=== PATIENT | male | born 1950 | race Caucasian/White ===

== ENCOUNTER 2022-10-28 15:20 | Inpatient (IN) ==
--- NOTE | 2022-10-28 15:42 | Emergency Department Note ---
HPI General Chief complaint: Abdominal Pain Stated complaint: ab pain Time Seen by Provider: 10/28/22 15:39 Source: patient Mode of arrival: ambulatory Limitations: no limitations History of Present Illness HPI Narrative: Narrative: Patient is a 72-year-old male with a complex medical history who presents to the emergency department due to concern for small bowel obstruction. Patient states that he has had weeks of abdominal discomfort and has had diarrhea over that period of time as well. He states that his primary care provider ordered a CT scan due to concern for possible diverticulitis. He states that he had a CT scan performed, and that they found concern for partial small bowel obstruction, so the radiology department called him and told him to come to the emergency department. At this time he endorses continued diarrhea and some abdominal discomfort in the left lower quadrant of the abdomen, but denies any other symptoms. Related Data Home Medications Medication Instructions Recorded Confirmed nitroglycerin 0.4 mg sublingual 0.4 mg sublingual Q5M PRN Angina 09/09/21 10/28/22 tablet isosorbide mononitrate 30 mg 60 mg PO QDAY 05/12/22 10/28/22 tablet,extended release 24 hr ferrous sulfate 325 mg (65 mg 325 mg PO BID 05/23/22 10/28/22 iron) tablet Previous Rx's Medication Instructions Recorded albuterol sulfate 90 mcg/actuation 2 puff inhalation Q6H PRN 09/09/21 aerosol inhaler shortness of breath or wheezing #8.5 grams pantoprazole 40 mg tablet,delayed 40 mg PO QDAY #90 tabs 05/04/22 release nicotine 21 mg/24 hr daily 1 patch transdermal Q24H #28 ea 05/10/22 transdermal patch atorvastatin 20 mg tablet 20 mg PO QDAY #90 tabs 07/19/22 metoprolol tartrate 25 mg tablet 25 mg PO BID #180 tabs 08/18/22 rivaroxaban 20 mg tablet (Xarelto) 20 mg PO QDAY #90 tabs 08/18/22 lisinopril 40 mg tablet 40 mg PO QDAY #90 tabs 10/24/22 Allergies Allergy/AdvReac Type Severity Reaction Status Date / Time doxycycline Allergy Unknown Unknown Verified 10/28/22 15:28 hydrocodone AdvReac Mild stomach Verified 10/28/22 22:03 upset Varenicline [From Chantix] AdvReac Mild Other Verified 10/28/22 15:28 Review of Systems ROS ROS Narrative: Narrative: Constitutional: Denies fever or weakness Eyes: Denies eye pain or vision change ENT ED: Denies throat pain or rhinorrhea Cardiovascular: Denies chest pain, dyspnea on exertion, orthopnea or edema Respiratory: Denies shortness of breath or cough Gastrointestinal: Reports abdominal pain and diarrhea; Denies nausea, vomiting, constipation, hematochezia or melena Genitourinary: Denies dysuria or frequency Musculoskeletal: Denies back pain or myalgia Integumentary: Denies rash or lesions Neurological: Denies headache, weakness, numbness, confusion, abnormal gait or dizziness Endocrine: Denies fatigue or polyuria PFSH Narrative Patient History Narrative: Narrative: Medical/Surgical/Family History All Active Problems (Updated 10/28/22 @ 20:29 by Dipti Gonzales MD) History of alcohol consumption (Acute) Cholelithiasis with chronic cholecystitis (Acute) Chronic diarrhea (Acute) Abdominal pain (Acute) Diarrhea (Acute) Epistaxis (Acute) Medicare annual wellness visit, initial (Acute) Chronic sinusitis (Chronic) Left ankle pain (Acute) Arterial atherosclerosis (Acute) Lung nodule (Acute) HLD (hyperlipidemia) (Chronic) GERD (gastroesophageal reflux disease) (Chronic) Abnormal stress test (Chronic) ETOH abuse (Chronic) HTN (hypertension) (Chronic) Shortness of breath (Chronic) Elevated d-dimer (Chronic) Coronary artery disease (Chronic) Chest pain (Chronic) Osteoarthritis, knee (Acute) Alcoholism /alcohol abuse (Acute) Unexplained weight loss (Acute) Abnormal CT scan, gallbladder (Acute) Hyponatremia (Acute) Hypochloremia (Acute) Macrocytosis without anemia (Acute) Cigarette nicotine dependence (Acute) Emphysema lung (Chronic) Chronic atrial fibrillation (Acute) Anticoagulant not prescribed at discharge (Acute) Coronary artery calcification of [place] artery (Acute) Snoring (Chronic) Angina at rest (Acute) Alcohol use (Chronic) Essential hypertension (Chronic) AC (acromioclavicular) arthritis (Chronic) Right shoulder pain (Chronic) Cervical radiculopathy (Acute) Cervical pain (neck) (Acute) Left knee pain (Acute) Colon polyps (Chronic) Fatigue (Chronic) Paroxysmal atrial fibrillation (Chronic) Tobacco use (Chronic) Osteoarthritis (Chronic) Encounter for Health Maintenance Examination in Adult (Chronic) Rosacea (Chronic) Medical History Abdominal pain Abnormal stress test Atrial fibrillation 11/2009-Recurrent atrial fibrillation with initial episode in 11/2009; cardiolite and echo normal and mitral valve prolapse respectively in 11/2009. Possible short episode in 04/2011. Current episode 01/2012. 02/03/12--Institution of calcium channel barbara, Cardizem CD 120 mg, daily and Magnesium 400 mg. daily. 06/08/12--C/O dizziness with 06/2012 refill--Cardizem CD discontinued at that point. Chest pain Chronic sinusitis Colon polyps 02/14/11--Dr. Faith--Cecum hyperplastic polyps, descending tubular adenoma, rectum hyperplastic polyp, diverticulosis, hemorrhoids. 5-year seque nce. Diarrhea Elevated d-dimer Encounter for Health Maintenance Examination in Adult ETOH abuse History of tobacco use 1&1/2 pack per day; previous discontinuation counseling. Has tried Chkantix w/intolerance. Tried gum and patches. Continue screening chest x-rays--most recent 02/03/12. HTN (hypertension) Left ankle pain Medicare annual wellness visit, initial Osteoarthritis Osteoarthritis, knee Paroxysmal atrial fibrillation Rosacea Tetracycline (which has been unavailable) or Doxycycline as treatment; also topical Cleocin. No evidence of ocular involvement--eye exam through Dr. Landaverde. Shortness of breath Tobacco use Surgical History H/O colonoscopy (02/14/11) 02/14/11--Dr. Faith--Cecum hyperplastic polyps, descending tubular adenoma, rectum hyperplastic polyp, diverticulosis, hemorrhoids. 5-year sequence. History of left heart catheterization (05/12/18) History of thumb surgery 1980-Left thumb surgery- Dr Danielson S/P arthroscopic surgery of right knee 08/2010 Right knee arthroscopy--Dr. Liang. Previous right knee arthroscopy 1998. Family History Father Malignant neoplasm of colon Type 2 diabetes mellitus Insulin dependent diabetic Malignant neoplasm of liver Malignant neoplasm of kidney Other Family history of coronary artery disease Social History Smoking Status: Current every day smoker Alcohol Intake Frequency: 2+ drinks per day Substance Use: does not use Exam Narrative Narrative: Narrative: General Limitations: no limitations General appearance: Present alert and in no apparent distress; Absent anxious, appears intoxicated or sleepy Head Head: Present atraumatic and normocephalic Eye Eye: Present EOMI; Absent scleral icterus or nystagmus ENT ENT: Present mucous membranes moist; Absent nasal congestion Neck Neck: Present full ROM; Absent tenderness Chest Chest: Present normal inspection and symmetric chest wall rise; Absent tenderness Respiratory Respiratory: Present normal lung sounds bilaterally; Absent respiratory distress or accessory muscle use Cardiovascular Cardiovascular: Present regular rate, normal rhythm and normal heart sounds Adbominal Abdominal: Present soft, tenderness (LLQ) and normal bowel sounds; Absent distention Extremities Extremities: Present normal inspection and full ROM Back Back: Present normal inspection and full ROM; Absent CVA tenderness (R) or CVA tenderness (L) Neurological Neurological: Present alert and oriented X3 Psychiatric Psychiatric: Present normal affect and normal mood Skin Skin: Present warm (WNL), dry and normal color Course Vital Signs Vital signs: Vital Signs Temperature 98.2 F 10/28/22 15:25 Pulse Rate 77 10/28/22 15:25 Respiratory Rate 18 10/28/22 15:25 Blood Pressure 144/84 10/28/22 15:25 Pulse Oximetry (%) 100 10/28/22 15:25 Oxygen Delivery Method Room Air 10/28/22 15:25 Temperature 97.5 F 10/29/22 07:54 Pulse Rate 69 10/29/22 07:54 Respiratory Rate 14 10/29/22 07:54 Blood Pressure 123/68 10/29/22 07:54 Pulse Oximetry (%) 100 10/29/22 07:54 Oxygen Delivery Method Room Air 10/29/22 08:00 [facility] Narrative Medical decision making narrative: Narrative: Patient is a 72-year-old male with a complex medical history who presents to the emergency department due to concern for small bowel obstruction. Patient came in after findings of partial small bowel obstruction on CT. There were also findings concerning for potential acalculous cholecystitis. A right upper quadrant ultrasound has been ordered, but I did speak with Dr. Gonzales prior to results of this ultrasound. He has agreed to see and evaluate patient for admission. Lab Data 10/29/22 05:38 10/29/22 05:38 Labs: Lab Results 10/28/22 10/28/22 10/28/22 Range/Units 17:03 17:03 17:11 WBC 5.9 (4.5-11.0) K/mcL RBC 3.36 L (4.63-6.08) M/mcL Hgb 11.7 L (13.7-17.5) g/dL Hct 32.6 L (40.1-51.0) % POC Hct 38.0 L (41-55) MCV 97.0 (80.0-100.0) fL MCH 34.8 H (26.0-34.0) pg MCHC 35.9 (31.0-36.0) g/dL RDW 14.7 H (11.5-14.5) % Plt Count 219 (140-440) K/mcL MPV 9.8 (8.8-12.5) fL Immature Gran % (Auto) 0.7 H (0.0-0.5) % Neut % (Auto) 65.4 (38.0-78.0) % Lymph % (Auto) 16.5 (15.5-49.0) % [place] % (Auto) 12.6 H (1.0-12.0) % Eos % (Auto) 4.0 (0.0-7.0) % Baso % (Auto) 0.8 (0.0-2.0) % Lymph # (Auto) 0.98 L (1.50-4.80) K/mcL [place] # (Auto) 0.75 (0.10-0.90) K/mcL Eos # (Auto) 0.24 (0.00-0.70) K/mcL Baso # (Auto) 0.05 (0.00-0.30) K/mcL Immature Gran # 0.04 (0.00-0.05) K/mcl Absolute Neutrophils 3.87 (1.80-8.00) K/mcL POC Sodium 126 L (133-145) POC Potassium 3.7 (3.3-5.1) POC Chloride 97 (96-108) POC Total CO2 18.0 L (22-30) POC BUN 21 H (6-20) POC Creatinine 1.2 (0.6-1.2) POC Glucose 73 (70-105) POC WB Ioniz Calcium 1.17 (1.16-1.32) Total Bilirubin 0.4 (0.1-1.0) mg/dL Direct Bilirubin < 0.2 (0-0.3) mg/dL AST 20 (<40) U/L ALT 7 (<40) U/L Alkaline Phosphatase 50 (39-117) U/L Total Protein 7.0 (5.9-8.4) gm/dL Albumin 4.2 (3.2-5.2) gm/dL Globulin 2.8 (2.2-3.7) gm/dL Lipase 25 (7-60) U/L Discharge Plan Patient/Caregiver Discharge Instructions Pt seen by PAYER SPECIALIST/PA only: No Clinical Impression: Partial obstruction of small intestine Patient Disposition: Xfer As Inpt ([facility]) Discharge Date/Time: 10/28/22 19:32
[2022-10-28 17:13] LABS: POC Calcium, Ionized 1.17 (1.16-1.32); POC Creatinine 1.2 (0.6-1.2); POC Potassium 3.7 (3.3-5.1)
[2022-10-28] MEDS ORDERED: LACTATED RINGERS 1,000 ML IV ONE (17:17)
[2022-10-28] MEDS ORDERED: NICOTINE 14 MG PATCH TOPICAL ONE (17:33)
[2022-10-28 17:55] LABS: Basophils # (Auto) 0.05 K/mcL (0.00-0.30); Basophils % (Auto) 0.8 % (0.0-2.0); Eosinophils # (Auto) 0.24 K/mcL (0.00-0.70); Hematocrit 32.6 % (40.1-51.0); Hemoglobin 11.7 g/dL (13.7-17.5); Lymphocytes # (Auto) 0.98 K/mcL (1.50-4.80); Lymphocytes % (Auto) 16.5 % (15.5-49.0); Mean Corpuscular HGB Conc 35.9 g/dL (31.0-36.0); Mean Platelet Volume 9.8 fL (8.8-12.5); Monocytes # (Auto) 0.75 K/mcL (0.10-0.90); Monocytes % (Auto) 12.6 % (1.0-12.0); Neutrophils % (Auto) 65.4 % (38.0-78.0); Platelet Count 219 K/mcL (140-440); RBC 3.36 M/mcL (4.63-6.08); Red Cell Distribution Width 14.7 % (11.5-14.5); WBC 5.9 K/mcL (4.5-11.0)
[2022-10-28 18:08] LABS: ALT/SGPT 7 U/L (<40); AST/SGOT 20 U/L (<40); Albumin 4.2 gm/dL (3.2-5.2); Alkaline Phosphatase 50 U/L (39-117); Bilirubin,Direct < 0.2 mg/dL (0-0.3); Bilirubin,Total 0.4 mg/dL (0.1-1.0); Globulin 2.8 gm/dL (2.2-3.7)
[2022-10-28] MEDS ORDERED: ONDANSETRON 4 MG/2 ML VIAL IV PRN (18:09)
[2022-10-28] MEDS ORDERED: LACTATED RINGERS 1,000 ML IV SCH (18:15)
[2022-10-28] MEDS ORDERED: HYDROmorphone 1 MG/ML SYRINGE IV PRN (20:19)
--- NOTE | 2022-10-28 20:30 | General Surg History&Physical ---
HPI History of Present Illness Patient information: Note initiated : 10/28/22 at 8:21 pm Service Date, if different from initiated Date: [] Patient: David Segovia 72 y/o M admitted on 10/28/22 for ab pain. Chief Complaint: [] Chief complaint: Abdominal pain; progressive diarrhea; weight loss; early satiety History of present illness: Mr. Segovia is a 72 year old M with 2-1/2 weeks of abdominal pain with profuse diarrhea. The pain is primarily in the hypogastrium. He has had 4-6 watery bowel movements per day. He has anorexia and mild nausea but no vomiting. He denies upper abdominal pain. He states that he has been losing weight for at least 2 years and has lost over 35 pounds. He does not have any known problem that has been chronic prior to the onset of his diarrhea. He had a CT of the abdomen performed in 2018 which showed a dilated gallbladder with thickened wall and sludge. He however denies epigastric or right upper quadrant pain associated with this. Patient had abdominal CT which shows diffuse dilation of colon and small bowel with the colon dilated all the way to the rectum without evidence of obstruction. There is also diffuse dilation of the small bowel with "is interpreted as a partial obstruction in the terminal ileum. The patient has not had any recent antibiotic treatment. He has not had any recent [facility]p visits. Review of Systems All systems: reviewed and no additional remarkable complaints except as stated PFSH PFS All Active Problems (Updated 10/28/22 @ 20:29 by Dipti Gonzales MD) History of alcohol consumption (Acute) Cholelithiasis with chronic cholecystitis (Acute) Chronic diarrhea (Acute) Abdominal pain (Acute) Diarrhea (Acute) Epistaxis (Acute) Medicare annual wellness visit, initial (Acute) Chronic sinusitis (Chronic) Left ankle pain (Acute) Arterial atherosclerosis (Acute) Lung nodule (Acute) HLD (hyperlipidemia) (Chronic) GERD (gastroesophageal reflux disease) (Chronic) Abnormal stress test (Chronic) ETOH abuse (Chronic) HTN (hypertension) (Chronic) Shortness of breath (Chronic) Elevated d-dimer (Chronic) Coronary artery disease (Chronic) Chest pain (Chronic) Osteoarthritis, knee (Acute) Alcoholism /alcohol abuse (Acute) Unexplained weight loss (Acute) Abnormal CT scan, gallbladder (Acute) Hyponatremia (Acute) Hypochloremia (Acute) Macrocytosis without anemia (Acute) Cigarette nicotine dependence (Acute) Emphysema lung (Chronic) Chronic atrial fibrillation (Acute) Anticoagulant not prescribed at discharge (Acute) Coronary artery calcification of [place] artery (Acute) Snoring (Chronic) Angina at rest (Acute) Alcohol use (Chronic) Essential hypertension (Chronic) AC (acromioclavicular) arthritis (Chronic) Right shoulder pain (Chronic) Cervical radiculopathy (Acute) Cervical pain (neck) (Acute) Left knee pain (Acute) Colon polyps (Chronic) Fatigue (Chronic) Paroxysmal atrial fibrillation (Chronic) Tobacco use (Chronic) Osteoarthritis (Chronic) Encounter for Health Maintenance Examination in Adult (Chronic) Rosacea (Chronic) Medical History Abdominal pain Abnormal stress test Atrial fibrillation 11/2009-Recurrent atrial fibrillation with initial episode in 11/2009; cardiolite and echo normal and mitral valve prolapse respectively in 11/2009. Possible short episode in 04/2011. Current episode 01/2012. 02/03/12--Institution of calcium channel barbara, Cardizem CD 120 mg, daily and Magnesium 400 mg. daily. 06/08/12--C/O dizziness with 06/2012 refill--Cardizem CD discontinued at that point. Chest pain Chronic sinusitis Colon polyps 02/14/11--Dr. Faith--Cecum hyperplastic polyps, descending tubular adenoma, rectum hyperplastic polyp, diverticulosis, hemorrhoids. 5-year sequence. Diarrhea Elevated d-dimer Encounter for Health Maintenance Examination in Adult ETOH abuse History of tobacco use 1&1/2 pack per day; previous discontinuation counseling. Has tried Chkantix w/intolerance. Tried gum and patches. Continue screening chest x-rays--most recent 02/03/12. HTN (hypertension) Left ankle pain Medicare annual wellness visit, initial Osteoarthritis Osteoarthritis, knee Paroxysmal atrial fibrillation Rosacea Tetracycline (which has been unavailable) or Doxycycline as treatment; also topical Cleocin. No evidence of ocular involvement--eye exam through Dr. Landaverde. Shortness of breath Tobacco use Surgical History H/O colonoscopy (02/14/11) 02/14/11--Dr. Faith--Cecum hyperplastic polyps, descending tubular adenoma, rectum hyperplastic polyp, diverticulosis, hemorrhoids. 5-year sequence. History of left heart catheterization (05/12/18) History of thumb surgery 1980-Left thumb surgery- Dr Danielson S/P arthroscopic surgery of right knee 08/2010 Right knee arthroscopy--Dr. Liang. Previous right knee arthroscopy 1998. Family History Father Malignant neoplasm of colon Type 2 diabetes mellitus Insulin dependent diabetic Malignant neoplasm of liver Malignant neoplasm of kidney Other Family history of coronary artery disease Social History household members: spouse marital status: occupational status: employed occupation: [employer] smoking status: Current every day smoker tobacco type: cigarettes per day: 5 and counseling given smoking status start date: 10/02/70 counseling given: support medications alcohol intake frequency: 2+ drinks per day substance use type: does not use MEDS/ALLERGIES Home Medications and Allergies Home Medications Medication Instructions Recorded Confirmed Type albuterol sulfate 90 mcg/actuation 2 puff inhalation Q6H PRN 09/09/21 10/28/22 Rx aerosol inhaler shortness of breath or wheezing #8.5 grams nitroglycerin 0.4 mg sublingual 0.4 mg sublingual Q5M PRN Angina 09/09/21 10/28/22 History tablet pantoprazole 40 mg tablet,delayed 40 mg PO QDAY #90 tabs 05/04/22 10/28/22 Rx release nicotine 21 mg/24 hr daily 1 patch transdermal Q24H #28 ea 05/10/22 10/28/22 Rx transdermal patch isosorbide mononitrate 30 mg 60 mg PO QDAY 05/12/22 10/28/22 History tablet,extended release 24 hr ferrous sulfate 325 mg (65 mg 325 mg PO BID 05/23/22 10/28/22 History iron) tablet atorvastatin 20 mg tablet 20 mg PO QDAY #90 tabs 07/19/22 10/28/22 Rx metoprolol tartrate 25 mg tablet 25 mg PO BID #180 tabs 08/18/22 10/28/22 Rx rivaroxaban 20 mg tablet (Xarelto) 20 mg PO QDAY #90 tabs 08/18/22 10/28/22 Rx lisinopril 40 mg tablet 40 mg PO QDAY #90 tabs 10/24/22 10/28/22 Rx Allergies Allergy/AdvReac Type Severity Reaction Status Date / Time doxycycline Allergy Unknown Unknown Verified 10/28/22 15:28 hydrocodone AdvReac Mild stomach Verified 10/28/22 22:03 upset Varenicline [From Chantix] AdvReac Mild Other Verified 10/28/22 15:28 Physical Examination Vital Signs Vital signs: Temp Pulse Resp BP Pulse Ox O2 Del Method 98.0 F 94 H 18 151/84 95 Room Air 10/28/22 20:00 10/28/22 20:00 10/28/22 20:00 10/28/22 20:00 10/28/22 20:00 10/28/22 20:00 General physical appearance General physical exam: cachectic and chronically ill Eyes Eye exam: PERRL and normal ocular movement ENT ENT exam: normal mucosa Head Head exam IM: Present atraumatic, normal inspection and normocephalic Neck Neck exam: no masses, no bruits, trachea midline, no lymphadenopathy and no venous distension Cardiovascular Cardiovascular exam IM: Present irregular rhythm (Irregularly irregular rhythm), +S1 and +S2; Absent gallop or JVD Respiratory Respiratory exam: normal expansion, normal respiratory effort and clear to auscultation Abdomen Abdomen: Present tender (Mild hypogastric tenderness) and bowel sounds; Absent masses or guarding Integumentary Integumentary: Present no rash, no growths and no abnormal pigmentation Neurologic Neurologic: Present normal coordination and normal sensation Musculoskeletal Musculoskeletal: Present normal gait and normal posture Psychiatric Psychiatric: Present oriented to time, oriented to person, oriented to place, speech is normal and memory intact Results Labs 10/28/22 17:03 Labs: Abnormal lab results 10/28/22 10/28/22 Range/Units 17:03 17:11 RBC 3.36 L (4.63-6.08) M/mcL Hgb 11.7 L (13.7-17.5) g/dL Hct 32.6 L (40.1-51.0) % POC Hct 38.0 L (41-55) MCH 34.8 H (26.0-34.0) pg RDW 14.7 H (11.5-14.5) % Immature Gran % (Auto) 0.7 H (0.0-0.5) % [place] % (Auto) 12.6 H (1.0-12.0) % Lymph # (Auto) 0.98 L (1.50-4.80) K/mcL POC Sodium 126 L (133-145) POC Total CO2 18.0 L (22-30) POC BUN 21 H (6-20) Diabetes panel 10/28/22 Range/Units 17:03 AST 20 (<40) U/L ALT 7 (<40) U/L Alkaline Phosphatase 50 (39-117) U/L Total Protein 7.0 (5.9-8.4) gm/dL Albumin 4.2 (3.2-5.2) gm/dL Calcium panel 10/28/22 Range/Units 17:03 Albumin 4.2 (3.2-5.2) gm/dL Adrenal panel 10/28/22 Range/Units 17:03 Total Bilirubin 0.4 (0.1-1.0) mg/dL AST 20 (<40) U/L ALT 7 (<40) U/L Alkaline Phosphatase 50 (39-117) U/L Total Protein 7.0 (5.9-8.4) gm/dL Albumin 4.2 (3.2-5.2) gm/dL All other labs normal. A/P Assessment and plan (1) Abdominal pain: Status: Acute (2) Chronic diarrhea: Status: Acute (3) Cholelithiasis with chronic cholecystitis: Status: Acute (4) History of alcohol consumption: Status: Acute (5) Unexplained weight loss: Status: Acute (6) Chronic atrial fibrillation: Status: Acute Plan IV hydration Bowel prep tomorrow Upper endoscopy and colonoscopy on Monday Stool for C. difficile Will need cholecystectomy during this hospitalization Sepsis Sepsis Identified: No Time Spent With Patient Time: Total time spent is greater than 50% in coordination of care (as documented) at patient's floor/unit and/or counseling patient:
[2022-10-28] MEDS: CEFEPIME 2 GM VIAL IV SCH (20:55)
[2022-10-28] MEDS: 0.9 % SODIUM CHLORIDE 1,000 ML IV SCH (20:55)
[2022-10-28] MEDS: METOPROLOL TARTRATE 25 MG TABLET PO SCH (23:48)
[2022-10-29] MEDS: METOCLOPRAMIDE 10 MG/2 ML VIAL IV SCH ×5 (00:24→23:58)
[2022-10-29] MEDS: CEFEPIME 2 GM VIAL IV SCH ×4 (03:18→21:14)
--- NOTE | 2022-10-29 03:36 | Ultrasound Report ---
CLINICAL INFORMATION: Abdominal pain. COMPARISON: None. FINDINGS: The gallbladder wall is thickened-5 mm with multiple stones and sludge without cholecystitis. Common bile duct is nonvisualized. Liver is normal in size and diffusely hyperechoic relative fatty change. Pancreas not visualized. IMPRESSION: Cholecystitis. Common bile duct and pancreas not visualized. If choledocholithiasis requires diagnostic exclusion prior to surgery, suggest MRCP Interpreted and Authenticated by: Joshua Santo 10/29/22
[2022-10-29] MEDS: 0.9 % SODIUM CHLORIDE 1,000 ML IV SCH ×2 (05:00→11:10)
[2022-10-29 06:42] LABS: Basophils # (Auto) 0.05 K/mcL (0.00-0.30); Basophils % (Auto) 1.2 % (0.0-2.0); Eosinophils # (Auto) 0.35 K/mcL (0.00-0.70); Eosinophils % (Auto) 8.3 % (0.0-7.0); Hematocrit 31.7 % (40.1-51.0); Lymphocytes # (Auto) 0.76 K/mcL (1.50-4.80); Lymphocytes % (Auto) 17.9 % (15.5-49.0); Mean Cell Volume 98.8 fL (80.0-100.0); Mean Corpuscular HGB Conc 34.7 g/dL (31.0-36.0); Mean Platelet Volume 10.2 fL (8.8-12.5); Monocytes % (Auto) 18.9 % (1.0-12.0); Platelet Count 211 K/mcL (140-440); RBC 3.21 M/mcL (4.63-6.08); Red Cell Distribution Width 14.5 % (11.5-14.5); WBC 4.2 K/mcL (4.5-11.0)
[2022-10-29 07:20] LABS: ALT/SGPT 5 U/L (<40); AST/SGOT 18 U/L (<40); Albumin 3.3 gm/dL (3.2-5.2); Albumin/Globulin Ratio 1.3 (1.0-2.3); Alkaline Phosphatase 41 U/L (39-117); Bilirubin,Direct < 0.2 mg/dL (0-0.3); Bilirubin,Total 0.5 mg/dL (0.1-1.0); Blood Urea Nitrogen 17 mg/dL (8-23); Calcium 8.8 mg/dL (8.6-10.4); Carbon Dioxide 18 mmol/L (22-30); Chloride 102 mmol/L (96-108); Globulin 2.5 gm/dL (2.2-3.7); Glomerular Filtration Rate 89; Glucose 71 mg/dL (70-105); Lactate Dehydrogenase 194 U/L (135-225); Phosphorous 3.2 mg/dL (2.5-4.5); Triglycerides 47 mg/dL (<150); Uric Acid 6.2 mg/dL (2.5-8.0)
[2022-10-29] MEDS: METOPROLOL TARTRATE 25 MG TABLET PO SCH ×2 (08:42→21:14)
[2022-10-29] MEDS: LISINOPRIL 20 MG TABLET PO SCH (08:43)
--- NOTE | 2022-10-29 13:45 | General Surgery Progress Note ---
SUBJECTIVE Subjective Patient information: Note initiated : 10/29/22 at 1:39 pm Service Date, if different from initiated Date: [] Patient: David Segovia 72 y/o M admitted on 10/28/22 for ab pain. Chief Complaint: [] Principal diagnosis: Unexplained weight loss; cholelithiasis with cholecystitis; chronic diarrhe Interval history: Patient states that he feels better. He has been afebrile. White count is normal and hemoglobin is stable. Magnesium is decreased. Abdominal x-ray shows major increase in colon gas with decrease in small bowel gas. Constitutional Vitals: Vital Signs Temp Pulse Resp BP Pulse Ox O2 Del Method 97.5 F 69 14 123/68 100 Room Air 10/29/22 07:54 10/29/22 07:54 10/29/22 07:54 10/29/22 07:54 10/29/22 07:54 10/29/22 08:00 Period Temp Pulse Resp BP Sys/Lord Pulse Ox O2 Del Method O2 Flow Rate Last 24 Hr 97.5 F-98.2 F 60-94 14-18 120-169/68-95 95-100 Room Air-Room Air Intake and Output 10/29/22 10/29/22 10/29/22 03:59 11:59 19:59 Intake Total 250 2431 240 Output Total 800 1660 300 Balance -550 771 -60 Weight 139 lb 4.8 oz Intake & Output: Intake & Output 10/29/22 10/29/22 10/29/22 03:59 11:59 19:59 Intake Total 250 2431 240 Output Total 800 1660 300 Balance -550 771 -60 Weight 139 lb 4.8 oz Intake: IV 1771 Sodium Chloride 0.9% 1,000 ml @ 1771 125 mls/hr IV .Q8H [facility] Rx#: [id number] Oral 250 660 240 Output: Void Amount 800 1450 300 Stool 210 Other: Meal Breakfast Lunch Percent of Meal Consumed 100% 100% Feeding Ability Independent Independent Urine Appearance Clear Clear Urine Color Yellow Yellow Urine Odor Normal Stool Color Brown Stool Consistency Liquid Watery Neck Neck exam: Present normal inspection Respiratory Respiratory exam: Present normal respiratory exam and CTAB Cardiovascular Cardiovascular exam: Present normal rate and rhythm, RRR, +S1 and +S2; Absent gallop GI/Abdominal GI/Abdominal exam: Present normal bowel sounds, soft and distended Extremities Exam Extremities exam: Present normal inspection and neurovascular intact Neurological Exam Neurological exam: Present alert, oriented X3 and reflexes normal; Absent motor sensory deficit Psychiatric Psychiatric exam: Present normal affect and normal mood A/P Assessment and plan (1) Cholelithiasis with chronic cholecystitis: Status: Acute (2) Chronic diarrhea: Status: Acute (3) Abdominal pain: Status: Acute (4) Diarrhea: Status: Acute (5) GERD (gastroesophageal reflux disease): Status: Chronic Qualifiers: Esophagitis presence: without esophagitis Qualified Code(s): K21.9 - Gastro-esophageal reflux disease without esophagitis (6) ETOH abuse: Status: Chronic (7) HTN (hypertension): Status: Chronic Qualifiers: Hypertension type: essential hypertension Qualified Code(s): I10 - Essential (primary) hypertension Plan ativan 1mgq8h prn Magnesium rider 4 mg x 2 GoLytely bowel prep starting in a.m. Time Spent With Patient Time: Total time spent is greater than 50% in coordination of care (as documented) at patient's floor/unit and/or counseling patient:
[2022-10-29] MEDS: NICOTINE 14 MG PATCH TOPICAL SCH (14:22)
[2022-10-29] MEDS: MAGNESIUM SULFATE 4 GM/100 ML BAG IV SCH ×2 (14:22→21:24)
--- NOTE | 2022-10-29 15:31 | XRay Report ---
CLINICAL INFORMATION: FOLLOW -UP OF SMALL BOWEL OBSTRUCTION COMPARISON: Abdomen and pelvic CT 10/28/2022 FINDINGS: The stool gas pattern is unremarkable. There is no free air, soft tissue mass, organomegaly or pathologic calcification. IMPRESSION: Normal abdomen-interval resolution in small bowel obstruction pattern Interpreted and Authenticated by: Joshua Santo 10/29/22
[2022-10-29] MEDS: LORazepam 1 MG TABLET PO PRN (16:03)
[2022-10-30] MEDS: 0.9 % SODIUM CHLORIDE 1,000 ML IV SCH ×4 (02:57→19:31)
[2022-10-30] MEDS: CEFEPIME 2 GM VIAL IV SCH ×3 (06:25→22:14)
[2022-10-30] MEDS: METOCLOPRAMIDE 10 MG/2 ML VIAL IV SCH ×3 (06:25→17:31)
[2022-10-30 07:45] LABS: Basophils # (Auto) 0.07 K/mcL (0.00-0.30); Basophils % (Auto) 1.4 % (0.0-2.0); Eosinophils # (Auto) 0.37 K/mcL (0.00-0.70); Eosinophils % (Auto) 7.6 % (0.0-7.0); Hematocrit 32.6 % (40.1-51.0); Hemoglobin 11.4 g/dL (13.7-17.5); Lymphocytes % (Auto) 16.5 % (15.5-49.0); Mean Cell Volume 98.5 fL (80.0-100.0); Monocytes # (Auto) 0.78 K/mcL (0.10-0.90); Monocytes % (Auto) 16.1 % (1.0-12.0); Neutrophils % (Auto) 57.8 % (38.0-78.0); Platelet Count 211 K/mcL (140-440); RBC 3.31 M/mcL (4.63-6.08); Red Cell Distribution Width 14.6 % (11.5-14.5); WBC 4.8 K/mcL (4.5-11.0)
[2022-10-30] MEDS ORDERED: PEG 3350/NA SULF,BICARB,CL/KCL 4,000 ML ORAL.SOL PO ONE (08:00)
[2022-10-30 08:05] LABS: ALT/SGPT 8 U/L (<40); AST/SGOT 21 U/L (<40); Albumin 3.5 gm/dL (3.2-5.2); Albumin/Globulin Ratio 1.6 (1.0-2.3); Alkaline Phosphatase 44 U/L (39-117); Bilirubin,Direct < 0.2 mg/dL (0-0.3); Bilirubin,Total 0.4 mg/dL (0.1-1.0); Blood Urea Nitrogen 9 mg/dL (8-23); Calcium 8.6 mg/dL (8.6-10.4); Carbon Dioxide 21 mmol/L (22-30); Chloride 101 mmol/L (96-108); Globulin 2.2 gm/dL (2.2-3.7); Glomerular Filtration Rate 89; Glucose 87 mg/dL (70-105); Lactate Dehydrogenase 199 U/L (135-225); Phosphorous 2.6 mg/dL (2.5-4.5); Triglycerides 44 mg/dL (<150); Uric Acid 5.2 mg/dL (2.5-8.0)
[2022-10-30] MEDS: METOPROLOL TARTRATE 25 MG TABLET PO SCH ×2 (09:31→22:14)
[2022-10-30] MEDS: LISINOPRIL 20 MG TABLET PO SCH (09:32)
[2022-10-30] MEDS: NICOTINE 14 MG PATCH TOPICAL SCH (09:32)
--- NOTE | 2022-10-30 13:55 | General Surgery Progress Note ---
SUBJECTIVE Subjective Patient information: Note initiated : 10/30/22 at 1:52 pm Service Date, if different from initiated Date: [] Patient: David Segovia 72 y/o M admitted on 10/28/22 for ab pain. Chief Complaint: [] Principal diagnosis: Unexplained weight loss; cholelithiasis with cholecystitis; chronic diarrhe Interval history: Patient continues to improve. He has less abdominal pain. White blood count remains normal and hemoglobin is stable.. He has tolerated his bowel prep and is counseled for upper endoscopy and colonoscopy tomorrow. Constitutional Vitals: Vital Signs Temp Pulse Resp BP Pulse Ox O2 Del Method 97.1 F 74 18 136/76 100 Room Air 10/30/22 12:57 10/30/22 12:57 10/30/22 12:00 10/30/22 12:00 10/30/22 12:57 10/30/22 12:57 Period Temp Pulse Resp BP Sys/Lord Pulse Ox O2 Del Method O2 Flow Rate Last 24 Hr 97.1 F-98.4 F 58-98 16-20 126-169/63-100 93-100 Room Air-Room Air Intake and Output 10/30/22 10/30/22 10/30/22 03:59 11:59 19:59 Intake Total 1060 5000 Output Total 1950 850 500 Balance -890 4150 -500 Intake & Output: Intake & Output 10/30/22 10/30/22 10/30/22 03:59 11:59 19:59 Intake Total 1060 5000 Output Total 1950 850 500 Balance -890 4150 -500 Intake: IV 100 1000 Sodium Chloride 0.9% 1,000 ml @ 1000 125 mls/hr IV .Q8H [facility] Rx#: [id number] Oral 960 4000 Output: Void Amount 1950 850 500 Other: Meal Breakfast Percent of Meal Consumed 100% Feeding Ability Independent Urine Appearance Clear Clear Urine Color Pale Yellow # Bowel Movements 4 Head Head exam: Present atraumatic, normal inspection and normocephalic Eye Eye exam: Present normal appearance and PERRL Pupils: Present normal accommodation ENT ENT exam: Present mucous membranes moist and normal exam Neck Neck exam: Present normal inspection Respiratory Respiratory exam: Present normal respiratory exam and CTAB Cardiovascular Cardiovascular exam: Present normal rate and rhythm, RRR, +S1 and +S2; Absent JVD GI/Abdominal GI/Abdominal exam: Present normal bowel sounds and soft; Absent distended or tenderness Extremities Exam Extremities exam: Present normal inspection and neurovascular intact Neurological Exam Neurological exam: Present alert and oriented X3; Absent motor sensory deficit Psychiatric Psychiatric exam: Present normal affect and normal mood A/P Assessment and plan (1) Chronic diarrhea: Status: Acute (2) Abdominal pain: Status: Acute (3) Cholelithiasis with chronic cholecystitis: Status: Acute (4) GERD (gastroesophageal reflux disease): Status: Chronic Qualifiers: Esophagitis presence: without esophagitis Qualified Code(s): K21.9 - Gastro-esophageal reflux disease without esophagitis Plan Upper endoscopy and colonoscopy tomorrow Laparoscopic cholecystectomy on Monday Soapsuds enema in a.m. Time Spent With Patient Time: Total time spent is greater than 50% in coordination of care (as documented) at patient's floor/unit and/or counseling patient:
--- NOTE | 2022-10-30 15:47 | XRay Report ---
CLINICAL INFORMATION: FOLLOW -UP OF SMALL BOWEL OBSTRUCTION COMPARISON: None. FINDINGS: There are multiple air-fluid level within nondilated small and large bowel suggesting ileus.. There is no free air, soft tissue mass, organomegaly or pathologic calcification. IMPRESSION: Mild ileus. No evidence of obstruction Interpreted and Authenticated by: Joshua Santo 10/30/22
[2022-10-30] MEDS: LORazepam 1 MG TABLET PO PRN (22:14)
[2022-10-31] MEDS: METOCLOPRAMIDE 10 MG/2 ML VIAL IV SCH ×4 (00:22→17:00)
[2022-10-31] MEDS: 0.9 % SODIUM CHLORIDE 1,000 ML IV SCH ×3 (03:14→17:02)
[2022-10-31] MEDS: CEFEPIME 2 GM VIAL IV SCH ×3 (06:20→22:51)
--- NOTE | 2022-10-31 07:50 | EKG ---
[facility] Test Date: 2022-10-28 Pat Name: David Segovia Department: ED Room: Gender: Male [employer] Vendor: SS : [id number] Requested By: Dipti Gonzales Order Number: [id number] Reading MD: Joshua Villasenor M.D. Measurements Intervals [place] Rate: 69 P: [place]: QRS: -21 QRSD: 84 T: 87 QT: 400 QTc: 428 Interpretive Statements Atrial fibrillation Borderline left axis deviation Low voltage, precordial leads Consider anterior infarct Minimal ST depression, lateral leads Electronically Signed On 10-31-2022 7:49:30 PST by Joshua Villasenor M.D. /store/M0/[id number]
[2022-10-31] MEDS: LISINOPRIL 20 MG TABLET PO SCH (08:27)
[2022-10-31] MEDS: NICOTINE 14 MG PATCH TOPICAL SCH (08:27)
[2022-10-31] MEDS: METOPROLOL TARTRATE 25 MG TABLET PO SCH ×2 (08:27→21:35)
--- NOTE | 2022-10-31 08:36 | XRay Report ---
INDICATION: FOLLOW -UP OF SMALL BOWEL OBSTRUCTION TECHNIQUE: Supine and upright abdomen. COMPARISON: Previous plain film examinations dated 10/30/2022, 10/29/2022. Previous CT scan dated 10/28/2022 FINDINGS:There is gas throughout the colon. Colon is nondilated and appears normal. No dilated gas-filled small bowel. Bowel gas pattern nonspecific and nonobstructive. There is no pneumoperitoneum. No biliary or portal venous gas. IMPRESSION: 1. Unremarkable bowel gas pattern. 2. No evidence for significant obstruction Interpreted and Authenticated by: Joshua Tejeda 10/31/22
[2022-10-31] MEDS ORDERED: KETAMINE 50 MG/ML ML IV PRN (08:39)
[2022-10-31] MEDS ORDERED: MIDAZOLAM 2 MG/2 ML VIAL IV SCH (08:45)
[2022-10-31] MEDS ORDERED: PROPOFOL 200 MG/20 ML VIAL IV SCH (08:45)
[2022-10-31] MEDS ORDERED: PROPOFOL 200 MG/20 ML VIAL IV ONE (12:00)
[2022-10-31] MEDS ORDERED: LIDOCAINE HCL/PF 100 MG/5 ML SYRINGE IV ONE (12:00)
--- NOTE | 2022-10-31 12:46 | Brief Operative Note ---
Brief Operative Note Date of procedure: 10/31/22 Pre-op diagnosis: nausea ,vomiting and weight loss Post-op diagnosis: other (nausea vomiting and weight loss) Procedure: EGD Grafts/Implants: No Anesthesia: MAC Findings: NORMAL EXCEPT FOR THICKENING OF GASTRIC FOLDS NORMAL ESOPHAGUS AND DUODENUM Complications: none Surgeon: Dipti Gonzales Estimated blood loss (cc): 0 Specimens Removed/Pathology: none sent Condition: stable Disposition: floor
--- NOTE | 2022-10-31 12:48 | Brief Operative Note ---
Brief Operative Note Date of procedure: 10/31/22 Pre-op diagnosis: CHRONIC DIARRHEA AND WEIGHT LOSS Post-op diagnosis: other (CHRONIC DIARRHEA AND WEIGHT LOSS) Procedure: COLONOSCOPY Grafts/Implants: No Anesthesia: MAC Findings: NORMAL COLON EXCEPT FOR DIVERTICULOSIS Complications: none Surgeon: Dipti Gonzales Estimated blood loss (cc): 0 Specimens Removed/Pathology: none sent Condition: stable Disposition: floor
[2022-10-31] MEDS: LORazepam 1 MG TABLET PO PRN (21:35)
[2022-11-01] MEDS: METOCLOPRAMIDE 10 MG/2 ML VIAL IV SCH ×4 (00:12→16:58)
--- NOTE | 2022-11-01 02:26 | Colonoscopy Procedure Note ---
DATE OF PROCEDURE--31 OCT 2022 PREOPERATIVE DIAGNOSIS: Chronic diarrhea and weight loss. POSTOPERATIVE DIAGNOSIS: Chronic diarrhea and weight loss. PROCEDURE: Colonoscopy. FINDINGS: Normal exam except for diverticulosis. DESCRIPTION OF PROCEDURE: Under general anesthesia, the patient turned to the left lateral decubitus position. Digital rectal examination was performed and was unremarkable. Scope was introduced and maneuvered to the cecum without difficulty. Cecum was identified by the opening of the appendix, ileocecal valve, and confluence of the taenia. Cecum was normal. The mucosa was totally normal. It was not edematous or friable. There was no evidence of inflammation. The ascending colon and transverse colon were normal. Left colon showed openings of diverticulosis but no other abnormality. The mucosa was normal. The patient tolerated the procedure well. Direct and retroflex view were normal. Scope was removed. He was awakened and transferred to surgery floor in satisfactory condition. LCS:sydney Job ID: [id number] Doc ID: [id number] Dipti Gonzales M.D. MTDTamara
--- NOTE | 2022-11-01 04:46 | EGD Procedure Note ---
DATE OF PROCEDURE--31 OCT 2022 PREOPERATIVE DIAGNOSIS: Nausea, vomiting, weight loss. POSTOPERATIVE DIAGNOSIS: Nausea, vomiting, weight loss. PROCEDURE: Esophagogastroduodenoscopy. FINDINGS: Normal examination except for slight thickening of the gastric folds. Normal esophagus and duodenum. DESCRIPTION OF PROCEDURE: Under general anesthesia, the patient turned to the left lateral decubitus position. Time-out procedure was carried out as per protocol. Bite block was placed. Scope was introduced through the bite block into the esophagus. Esophagus was normal down to the GE junction. GE junction was normal. The gastric fundus, body, and antrum were normal though the gastric folds were slightly prominent. There were no mucosal changes. There was no inflammation. There was no abnormal growth. No ulceration. There were no vascular lesions. Pylorus opened appropriately. First, second, and third portions of the duodenum were normal. Scope was pulled back and retroflex view was done. No abnormality was noted. Air was suctioned from the stomach and the scope was removed. The patient was then repositioned for colonoscopy. LCS:sydney Job ID: [id number] Doc ID: [id number] Alana Conti
[2022-11-01] MEDS: CEFEPIME 2 GM VIAL IV SCH ×3 (06:11→22:43)
[2022-11-01 07:26] LABS: Basophils # (Auto) 0.06 K/mcL (0.00-0.30); Basophils % (Auto) 1.3 % (0.0-2.0); Eosinophils # (Auto) 0.42 K/mcL (0.00-0.70); Eosinophils % (Auto) 8.8 % (0.0-7.0); Hematocrit 32.9 % (40.1-51.0); Hemoglobin 11.3 g/dL (13.7-17.5); Lymphocytes # (Auto) 0.99 K/mcL (1.50-4.80); Lymphocytes % (Auto) 20.6 % (15.5-49.0); Mean Cell Volume 100.3 fL (80.0-100.0); Mean Corpuscular HGB Conc 34.3 g/dL (31.0-36.0); Mean Platelet Volume 10.2 fL (8.8-12.5); Monocytes % (Auto) 18.8 % (1.0-12.0); Neutrophils % (Auto) 50.1 % (38.0-78.0); Platelet Count 190 K/mcL (140-440); RBC 3.28 M/mcL (4.63-6.08); Red Cell Distribution Width 14.6 % (11.5-14.5); WBC 4.8 K/mcL (4.5-11.0)
[2022-11-01 08:16] LABS: ALT/SGPT 9 U/L (<40); AST/SGOT 21 U/L (<40); Albumin 3.5 gm/dL (3.2-5.2); Albumin/Globulin Ratio 1.8 (1.0-2.3); Alkaline Phosphatase 46 U/L (39-117); Bilirubin,Direct < 0.2 mg/dL (0-0.3); Bilirubin,Total 0.4 mg/dL (0.1-1.0); Blood Urea Nitrogen 8 mg/dL (8-23); Calcium 8.7 mg/dL (8.6-10.4); Carbon Dioxide 20 mmol/L (22-30); Chloride 102 mmol/L (96-108); Glomerular Filtration Rate 94; Glucose 78 mg/dL (70-105); Lactate Dehydrogenase 230 U/L (135-225); Phosphorous 2.7 mg/dL (2.5-4.5); Triglycerides 42 mg/dL (<150); Uric Acid 4.6 mg/dL (2.5-8.0)
[2022-11-01] MEDS: 0.9 % SODIUM CHLORIDE 1,000 ML IV SCH ×2 (08:53→16:58)
[2022-11-01] MEDS: NICOTINE 14 MG PATCH TOPICAL SCH (08:54)
[2022-11-01] MEDS: METOPROLOL TARTRATE 25 MG TABLET PO SCH ×2 (08:54→20:18)
[2022-11-01] MEDS: LISINOPRIL 20 MG TABLET PO SCH (08:54)
[2022-11-01] MEDS ORDERED: KETAMINE 50 MG/ML Syringe (ANEST) IV ONE (13:00)
[2022-11-01] MEDS ORDERED: fentaNYL 250 MCG/5 ML VIAL IV ONE (13:00)
[2022-11-01] MEDS ORDERED: ONDANSETRON 4 MG/2 ML VIAL ONE (13:00)
[2022-11-01] MEDS ORDERED: ePHEDrine 50 MG/5 ML SYRINGE (ANEST) IV ONE (13:00)
[2022-11-01] MEDS ORDERED: PROPOFOL 200 MG/20 ML VIAL IV ONE (13:00)
[2022-11-01] MEDS ORDERED: MAGNESIUM SULFATE 2 GM/50 ML BAG IV ONE (13:00)
[2022-11-01] MEDS ORDERED: PHENYLephrine 1 MG/10 ML SYRINGE (ANEST) ONE (13:00)
[2022-11-01] MEDS ORDERED: ROCURONIUM 10 MG/ML ML IV ONE (13:00)
[2022-11-01] MEDS ORDERED: DEXAMETHASONE 10 MG/ML VIAL ONE (13:00)
[2022-11-01] MEDS ORDERED: SUGAMMADEX SODIUM 200 MG/2 ML VIAL IV ONE (13:00)
[2022-11-01] MEDS ORDERED: LIDOCAINE HCL/PF 100 MG/5 ML SYRINGE IV ONE (13:00)
[2022-11-01] MEDS ORDERED: MEPERIDINE 25 MG/ML VIAL IV PRN (13:32)
[2022-11-01] MEDS ORDERED: PROMETHAZINE 25 MG/ML VIAL IV PRN (13:32)
[2022-11-01] MEDS ORDERED: diphenhydrAMINE 50 MG/ML VIAL IV PRN (13:32)
[2022-11-01] MEDS ORDERED: ACETAMINOPHEN 1,000 MG/100 ML BAG IV ONE (13:32)
[2022-11-01] MEDS ORDERED: ONDANSETRON 4 MG/2 ML VIAL IV PRN (13:32)
[2022-11-01] MEDS ORDERED: IPRATROPIUM/ALBUTEROL 3 ML AMPUL.NEB NEB PRN (13:32)
[2022-11-01] MEDS ORDERED: LACTATED RINGERS 250 ML IV PRN (13:32)
[2022-11-01] MEDS ORDERED: fentaNYL 100 MCG/2 ML VIAL IV PRN (13:32)
[2022-11-01] MEDS ORDERED: NALOXONE HCL 0.4 MG/ML VIAL IV PRN (13:32)
[2022-11-01] MEDS ORDERED: LACTATED RINGERS 1,000 ML IV SCH (13:45)
--- NOTE | 2022-11-01 13:51 | Brief Operative Note ---
Brief Operative Note Date of procedure: 11/01/22 Pre-op diagnosis: cholelithiasis with cholecystitis Post-op diagnosis: other (cholelithiasis with cholecystitis) Procedure: laparoscopic cholecystectomy Grafts/Implants: No Anesthesia: GETA Findings: chronic inflammation of gallbladder with stones Complications: none Surgeon: Ditpi Gonzales Estimated blood loss (cc): 5 Specimens Removed/Pathology: other (gallbladder) Condition: stable Disposition: PACU
[2022-11-01] MEDS ORDERED: hydrALAZINE 20 MG/ML VIAL IV PRN (14:05)
[2022-11-01] MEDS ORDERED: METOPROLOL TARTRATE 25 MG TABLET PO SCH (15:39)
[2022-11-01] MEDS ORDERED: METOPROLOL TARTRATE 25 MG TABLET PO PRN (15:44)
[2022-11-01] MEDS: ACETAMINOPHEN 325 MG TABLET PO PRN ×2 (15:56→20:18)
--- NOTE | 2022-11-01 16:01 | Operative Note ---
DATE OF OPERATION: 11/01/2022 PREOPERATIVE DIAGNOSIS: Cholelithiasis with cholecystitis. POSTOPERATIVE DIAGNOSIS: Cholelithiasis with cholecystitis. PROCEDURE: Laparoscopic cholecystectomy. SURGEON: Dipti Gonzales M.D. FINDINGS: Chronic inflammation of gallbladder with stones. DESCRIPTION OF PROCEDURE: Under general anesthesia, the patient's abdomen was prepped and draped in a sterile field. Timeout procedure was carried out as per protocol. A supraumbilical midline incision was made and Veress needle was inserted uneventfully. Abdomen was insufflated with 2.7 liters of CO2. A 12 mm port was placed. Laparoscope was placed. Under videoscopic guidance, the gallbladder was identified. A 12 mm port and two 5 mm ports were placed in the right subcostal region. The gallbladder was positioned. Infundibulum was extended inferiorly and the cystic duct and cystic artery branches were dissected and followed back to the gallbladder. Cystic duct was clipped with five clips and divided close to the gallbladder. Cystic artery was clipped with four clips on the wall of the gallbladder. The gallbladder was then from the hepatic bed without difficulty. There was no bile leak and there was no bleeding. Irrigation was carried out. The gallbladder was placed in an Endopouch and retrieved. CO2 was allowed to escape from the abdomen and the ports were removed. The fascia at the umbilicus was closed with interrupted 0 Vicryl. The fascia in the upper midline incision was closed with interrupted 0 Vicryl. Skin incisions were closed with meghan. The patient tolerated the procedure well. Tegaderm dressings were placed. He was awakened, transferred to a bed, and taken to the postanesthetic care unit in satisfactory condition. LCS:dangelo Job ID: [id number] Doc ID: [id number] Dipti Gonzales M.D.
[2022-11-01] MEDS: LORazepam 1 MG TABLET PO PRN (20:19)
[2022-11-02] MEDS: METOCLOPRAMIDE 10 MG/2 ML VIAL IV SCH ×3 (00:13→14:47)
[2022-11-02] MEDS: ACETAMINOPHEN 325 MG TABLET PO PRN (03:58)
[2022-11-02] MEDS: CEFEPIME 2 GM VIAL IV SCH ×2 (06:14→14:48)
[2022-11-02 07:31] LABS: Basophils # (Auto) 0.02 K/mcL (0.00-0.30); Basophils % (Auto) 0.3 % (0.0-2.0); Eosinophils # (Auto) 0 K/mcL (0.00-0.70); Eosinophils % (Auto) 0 % (0.0-7.0); Hematocrit 34.4 % (40.1-51.0); Hemoglobin 11.2 g/dL (13.7-17.5); Lymphocytes # (Auto) 0.72 K/mcL (1.50-4.80); Lymphocytes % (Auto) 10.8 % (15.5-49.0); Mean Cell Volume 103.6 fL (80.0-100.0); Mean Corpuscular HGB Conc 32.6 g/dL (31.0-36.0); Mean Platelet Volume 10.2 fL (8.8-12.5); Monocytes # (Auto) 0.84 K/mcL (0.10-0.90); Monocytes % (Auto) 12.6 % (1.0-12.0); Neutrophils % (Auto) 75.7 % (38.0-78.0); Platelet Count 173 K/mcL (140-440); RBC 3.32 M/mcL (4.63-6.08); Red Cell Distribution Width 14.7 % (11.5-14.5); WBC 6.7 K/mcL (4.5-11.0)
[2022-11-02] MEDS: 0.9 % SODIUM CHLORIDE 1,000 ML IV SCH (07:57)
[2022-11-02 08:38] LABS: ALT/SGPT 19 U/L (<40); AST/SGOT 45 U/L (<40); Albumin 3.2 gm/dL (3.2-5.2); Albumin/Globulin Ratio 1.4 (1.0-2.3); Alkaline Phosphatase 44 U/L (39-117); Bilirubin,Direct < 0.2 mg/dL (0-0.3); Bilirubin,Total 0.3 mg/dL (0.1-1.0); Blood Urea Nitrogen 8 mg/dL (8-23); Calcium 8.9 mg/dL (8.6-10.4); Carbon Dioxide 17 mmol/L (22-30); Chloride 99 mmol/L (96-108); Globulin 2.3 gm/dL (2.2-3.7); Glomerular Filtration Rate 85; Glucose 111 mg/dL (70-105); Lactate Dehydrogenase 303 U/L (135-225); Phosphorous 3.5 mg/dL (2.5-4.5); Triglycerides 42 mg/dL (<150); Uric Acid 4.3 mg/dL (2.5-8.0)
[2022-11-02] MEDS: LORazepam 1 MG TABLET PO PRN (09:07)
[2022-11-02] MEDS: LISINOPRIL 20 MG TABLET PO SCH (09:07)
[2022-11-02] MEDS: METOPROLOL TARTRATE 25 MG TABLET PO SCH (09:07)
[2022-11-02] MEDS: NICOTINE 14 MG PATCH TOPICAL SCH (09:07)
--- NOTE | 2022-11-02 12:43 | Discharge Summary ---
Discharge Provider Provider IMPORTANT FOLLOW-UP INFORMATION FOR PCP: Patient information: Note initiated : 11/02/22 at 12:41 pm Service Date, if different from initiated Date: [] Patient: David Segovia 72 y/o M admitted on 10/29/22 for ab pain; chronic colysystitis. Chief Complaint: [] Date of admission: 10/29/22 12:00 Discharge date: 11/02/22 Primary care physician: Joshua Roberts DO Admitting clinician: Dipti Gonzales Attending physician on admission: Dipti Gonzales Consults: 10/28/22 Consult to Physician [CONS] Stat Comment: Consulting Provider: Dipti Gonzales Reason For Exam: Physician to Consult Attending physician on discharge: Dipti Gonzales Discharging clinician: Dipti Gonzales COURSE Hospital Course Hospital course: 72-year-old male who presented to hospital with history of abdominal pain and profuse diarrhea. He was having up to 6 watery bowel movements per day. He had anorexia and nausea but no vomiting. He states that he has lost 35 pounds over the past [address] of the abdomen performed in 2018 showed dilated gallbladder with thickened wall and sludge. CT performed on the day of admission showed diffuse dilation of colon and small bowel with the colon being dilated all the way to the rectum without evidence of obstruction. Because he had diffuse dilation of the small bowel it was interpreted as showing partial obstruction.. Upper abdominal ultrasound showed gallstones and diffuse edematous gallbladder wall. The patient was admitted and treated symptomatically. He improved and had multiple bowel movements. Upper endoscopy was performed and it only showed thickening of the gastric wall. There was no evidence of inflammation or mass effect. Colonoscopy was normal except for diverticulosis. There was no inflammation of the colon. Stool cultures including stool for C. difficile were negative for pathology. Patient underwent laparoscopic cholecystectomy on yesterday and he was found to have acute on chronic inflammation with large gallstones. Patient is progressed very nicely. He states that he feels better than he spent 4 weeks. He is tolerating diet and can be discharged home with follow-up in the office in 2 weeks. Discharge diagnosis: Chronic diarrhea. Secondary discharge diagnosis: Cholelithiasis with cholecystitis History of chronic alcohol excess Unexplained weight loss History of chronic atrial fibrillation Chronic obstructive lung disease History of tobacco excess Reason for admission: Abdominal pain diarrhea weight loss Procedures: Esophagogastroduodenoscopy Colonoscopy Laparoscopic cholecystectomy Pertinent studies/significant findings: CT of abdomen pelvis Upper abdominal ultrasound Complications: None Time Spent with Patient Time attestation: Total time spent providing and/or coordinating discharge services: Time spent: Less than 30 minutes Physical Examination Vital Signs Vital signs: Temp Pulse Resp BP Pulse Ox O2 Del Method O2 Flow Rate 97.5 F 85 24 H 182/96 100 Room Air 6 11/02/22 08:00 11/02/22 08:00 11/02/22 08:00 11/02/22 08:00 11/02/22 08:00 11/02/22 08:00 11/01/22 14:07 General physical appearance General physical exam: no distress, no pain, cachectic and chronically ill Eyes Eye exam: PERRL and normal ocular movement ENT ENT exam: normal nares, normal mucosa and no congestion Head Head exam IM: Present atraumatic, normal inspection and normocephalic Neck Neck exam: no masses, no bruits, trachea midline, no lymphadenopathy and no venous distension Cardiovascular Cardiovascular exam IM: Present normal rate and rhythm, RRR, +S1 and +S2; Absent JVD Respiratory Respiratory exam: normal expansion, normal respiratory effort and clear to auscultation Abdomen Abdomen: Present soft and tender (Mild tenderness around port sites) Integumentary Integumentary: Present no rash, no growths and no abnormal pigmentation Neurologic Neurologic: Present normal coordination and normal sensation Musculoskeletal Musculoskeletal: Present normal gait and normal posture Psychiatric Psychiatric: Present oriented to time, oriented to person, oriented to place, speech is normal and memory intact Discharge Plan Patient/Caregiver Discharge Instructions Activity: increase activity as tolerated Diet: Regular Diet and Low Fat Prescriptions: New oxycodone-acetaminophen [Endocet] 10-325 mg tablet 1 tab PO Q4H PRN (Reason: Pain) Qty: 30 0RF Continued pantoprazole 40 mg tablet,delayed release (DR/EC) 40 mg PO QDAY Qty: 90 1RF nicotine 21 mg/24 hr patch 24 hour 1 patch transdermal Q24H Qty: 28 5RF ferrous sulfate 325 mg (65 mg iron) tablet 325 mg PO BID atorvastatin 20 mg tablet 20 mg PO QDAY Qty: 90 1RF Xarelto 20 mg tablet 20 mg PO QDAY Qty: 90 1RF Rx Instructions: must administer with evening meal metoprolol tartrate 25 mg tablet 25 mg PO BID Qty: 180 1RF lisinopril 40 mg tablet 40 mg PO QDAY Qty: 90 3RF nitroglycerin 0.4 mg tablet, sublingual 0.4 mg sublingual Q5M PRN (Reason: Angina) Rx Instructions: do not exceed 3 doses per episode albuterol sulfate 90 mcg/actuation HFA aerosol inhaler 2 puff inhalation Q6H PRN (Reason: shortness of breath or wheezing) Qty: 8.5 0RF isosorbide mononitrate 30 mg tablet extended release 24 hr 60 mg PO QDAY Rx Instructions: patient states this was just double on 05/09/22, thinks its at 60mg now Prescription drug monitoring program results: PDMP not reviewed Follow Up Plan Follow up with: Joshua Roberts DO [Primary Care Provider] - Dipti Gonzales MD [Physician] - (Follow-up in the office in 2 weeks) Patient Disposition: Home, Self-Care Prognosis: Good Rehab Potential: Good I certify that the patient requires SNF services: No Overall status at discharge: patient is progressing back to baseline Discharge Orders: Discharge Order (Routine); Ordered 11/02/22 Ordered By: Dipti Gonzales Pending Pending Pending: Resuscitation Status Resuscitate (Full Code) Diet Full Liquid Diet Start MonNov 01 145 Acetaminophen (Acetaminophen 325 Mg Tablet) 650 mg PO Q6HP PRN; Protocol PRN Reason: Per Pain Protocol/Fever > 101 Last Admin: 11/02/22 03:58 Dose: 650 mg Documented By: Admin: 11/01/22 20:18 Dose: 650 mg Documented By: Admin: 11/01/22 15:56 Dose: 650 mg Documented By: LISA Cefepime HCl (Cefepime 2 Gm Vial) 2 gm IV Q8H JESUS MANUEL; Protocol Last Admin: 11/02/22 06:14 Dose: 2 gm Documented By: Admin: 11/01/22 22:43 Dose: 2 gm Documented By: Admin: 11/01/22 12:09 Dose: 2 gm Documented By: Admin: 11/01/22 06:11 Dose: 2 gm Documented By: Admin: 10/31/22 22:51 Dose: 2 gm Documented By: Admin: 10/31/22 14:10 Dose: 2 gm Documented By: Admin: 10/31/22 06:20 Dose: 2 gm Documented By: Admin: 10/30/22 22:14 Dose: 2 gm Documented By: Admin: 10/30/22 13:49 Dose: 2 gm Documented By: Admin: 10/30/22 06:25 Dose: 2 gm Documented By: Admin: 10/29/22 21:14 Dose: 2 gm Documented By: Admin: 10/29/22 13:56 Dose: 2 gm Documented By: Admin: 10/29/22 08:43 Dose: 2 gm Documented By: Admin: 10/29/22 03:18 Dose: 2 gm Documented By: Admin: 10/28/22 20:55 Dose: 2 gm Documented By: SIOMARA Sodium Chloride (Sodium Chloride 0.9%) 1,000 mls @ 75 mls/hr IV .[id number] [facility] Last Admin: 11/02/22 07:57 Dose: 75 mls/hr Documented By: Infusion: 11/02/22 06:42 Dose: 0 mls/hr Documented By: Admin: 11/01/22 16:58 Dose: 75 mls/hr Documented By: Infusion: 11/01/22 16:58 Dose: 75 mls/hr Documented By: Admin: 11/01/22 08:53 Dose: 75 mls/hr Documented By: Infusion: 11/01/22 06:21 Dose: 75 mls/hr Documented By: Admin: 10/31/22 17:01 Dose: 75 mls/hr Documented By: LISA Lisinopril (Lisinopril 20 Mg Tablet) 40 mg PO DAILY [facility] Last Admin: 11/02/22 09:07 Dose: 40 mg Documented By: Admin: 11/01/22 08:54 Dose: 40 mg Documented By: Admin: 10/31/22 08:27 Dose: 40 mg Documented By: Admin: 10/30/22 09:32 Dose: 40 mg Documented By: Admin: 10/29/22 08:43 Dose: 40 mg Documented By: DAVID Lorazepam (Lorazepam 1 Mg Tablet) 1 mg PO Q8HP PRN PRN Reason: ANXIETY/SEDATION Last Admin: 11/02/22 09:07 Dose: 1 mg Documented By: Admin: 11/01/22 20:19 Dose: 1 mg Documented By: Admin: 10/31/22 21:35 Dose: 1 mg Documented By: Admin: 10/30/22 22:14 Dose: 1 mg Documented By: Admin: 10/29/22 16:03 Dose: 1 mg Documented By: DAVID Metoclopramide HCl (Metoclopramide 10 Mg/2 Ml Vial) 10 mg IV Q6 [facility] Admin: 11/02/22 06:14 Dose: 10 mg Documented By: Admin: 11/02/22 00:13 Dose: 10 mg Documented By: Admin: 11/01/22 16:58 Dose: 10 mg Documented By: Admin: 11/01/22 12:09 Dose: 10 mg Documented By: Admin: 11/01/22 06:11 Dose: 10 mg Documented By: Admin: 11/01/22 00:12 Dose: 10 mg Documented By: Admin: 10/31/22 17:00 Dose: 10 mg Documented By: Admin: 10/31/22 11:46 Dose: 10 mg Documented By: Admin: 10/31/22 06:20 Dose: 10 mg Documented By: Admin: 10/31/22 00:22 Dose: 10 mg Documented By: Admin: 10/30/22 17:31 Dose: 10 mg Documented By: Admin: 10/30/22 11:26 Dose: 10 mg Documented By: Admin: 10/30/22 06:25 Dose: 10 mg Documented By: Admin: 10/29/22 23:58 Dose: 10 mg Documented By: Admin: 10/29/22 17:44 Dose: 10 mg Documented By: Admin: 10/29/22 12:06 Dose: 10 mg Documented By: Admin: 10/29/22 05:00 Dose: 10 mg Documented By: Admin: 10/29/22 00:24 Dose: 10 mg Documented By: SIOMARA Metoprolol Tartrate (Metoprolol Tartrate 25 Mg Tablet) 25 mg PO BID [facility] Admin: 02/01/23 09:07 Dose: 25 mg Documented By: Admin: 11/01/22 20:18 Dose: 25 mg Documented By: Admin: 11/01/22 08:54 Dose: 25 mg Documented By: Admin: 10/31/22 21:35 Dose: 25 mg Documented By: Admin: 10/31/22 08:27 Dose: 25 mg Documented By: Admin: 10/30/22 22:14 Dose: 25 mg Documented By: Admin: 10/30/22 09:31 Dose: 25 mg Documented By: Admin: 10/29/22 21:14 Dose: 25 mg Documented By: Admin: 10/29/22 08:42 Dose: 25 mg Documented By: Admin: 10/28/22 23:48 Dose: Not Given Documented By: SIOMARA Nicotine (Nicotine 14 Mg Patch) 14 mg TOPICAL DAILY [facility] Admin: 11/02/22 09:07 Dose: 14 mg Documented By: Admin: 11/01/22 08:54 Dose: 14 mg Documented By: Admin: 10/31/22 08:27 Dose: 14 mg Documented By: Admin: 10/30/22 09:32 Dose: 14 mg Documented By: Admin: 10/29/22 14:22 Dose: 14 mg Documented By: DAVID Shift Summary 11/02/22 05:01 Shift Summary by Chica Anthony Admitted 10/28 after having abdominal pain, nausea, loose stools for several days . HX: cholecystitis; GERD; ETOH; HTN; smoker; A-fib. EGD & colonoscopy done 10/31; both normal except for diverticulosis in descending colon. Cholecystectomy done 11/01. Lap sites X4 w/meghan & tegaderm. Scant amount of blood under dressings. Had a full liquid diet last night w/no nausea. Had tylenol for pain. Says pain increases when he moves around, but subsides once he's resting again. Stands at bedside to void; QS. Is up in room ad suraj. No BM this shift. Will likely d/c home today. Initialized on 11/02/22 05:01 - END OF NOTE
== END 2022-11-02 14:45 | disposition home or self-care (01) | DRG 418 ==
LOC: ED 15:20 → MEDSUR 15:20
PROVIDERS: ADMIT Family Medicine Adult Medicine; ATTEND Family Medicine Adult Medicine